=== PATIENT | male | born 2000 | race Caucasian/White ===

== ENCOUNTER 2025-01-21 15:00 | Emergency (ER) | payer OTHER ==
[~2025-01-21] VITALS: Wt 168.7 kg
[~2025-01-21 15:00] MED LIST: AMOXICILLIN500 MG PO; FLONASE 0.05% 121 EA NAS; MOTRIN400 MG PO; ZYRTEC10 MG PO
[2025-01-21 15:15] VITALS: BP 168/93
[2025-01-21] MEDS ORDERED: Ondansetron Hydrochloride 4 MG TAB PO ONE (15:50)
[2025-01-21] MEDS ORDERED: Ondansetron4 MG PO (16:54)
[2025-01-21] MEDS ORDERED: CARAFATE1 G1 PO (16:54)
[2025-01-21] MEDS ORDERED: PEPCID20 MG PO (16:54)
== END 2025-01-21 17:00 | disposition home or self-care (01) ==
LOC: ED 15:00
DX: K21.9 Gastro-esophageal reflux disease without esophagitis (principal); R11.2 Nausea with vomiting, unspecified; R19.7 Diarrhea, unspecified; Z79.899 Other long term (current) drug therapy